=== PATIENT | male | born 1995 | race African-American/Black ===

== ENCOUNTER 2019-07-31 15:17 | Emergency (ER) | payer MEDICAID ==
[~2019-07-31] VITALS: Ht 157.5 cm; Wt 59.0 kg
[2019-07-31 15:46] VITALS: BP 107/74
[2019-07-31] MEDS ORDERED: ACETAMINOPHEN 325MG TABLET PO ONE (17:00)
== END 2019-07-31 17:44 | disposition home or self-care (01) ==
LOC: ER 15:17
DX: K11.20 Sialoadenitis, unspecified (principal); J45.909 Unspecified asthma, uncomplicated; Z90.49 Acquired absence of other specified parts of digestive tract; Z88.6 Allergy status to analgesic agent
CPT/HCPCS: 99281; 99283

== ENCOUNTER 2021-01-07 11:11 | Emergency (ER) | payer SELFPAY ==
[~2021-01-07] VITALS: Ht 157.5 cm; Wt 61.0 kg
[2021-01-07] MEDS ORDERED: AMOX-424 MT (12:44)
[2021-01-07] MEDS ORDERED: NAPR-1176 MT (12:44)
[2021-01-07] MEDS ORDERED: ACET-2708 MT (12:44)
[2021-01-07] MEDS ORDERED: AMOXICILLIN/POTASSIUM CLAVULANATE 875/125MG TAB PO ONE (12:45)
[2021-01-07] MEDS ORDERED: ACETAMINOPHEN 325MG TABLET PO ONE (12:45)
[2021-01-07] MEDS ORDERED: IBUPROFEN 600MG TABLET PO ONE (12:45)
[2021-01-07 13:29] VITALS: BP 117/72
== END 2021-01-07 13:40 | disposition home or self-care (01) ==
LOC: ER 11:11
DX: K04.7 Periapical abscess without sinus (principal); J45.909 Unspecified asthma, uncomplicated; Z90.49 Acquired absence of other specified parts of digestive tract; Z88.6 Allergy status to analgesic agent
CPT/HCPCS: 99284

== ENCOUNTER 2021-01-31 14:29 | Emergency (ER) | payer MEDICAID ==
[~2021-01-31] VITALS: Ht 160 cm; Wt 59.0 kg
[~2021-01-31 14:29] MED LIST: ACET-2708 MT; AMOX-424 MT; NAPR-1176 MT
[2021-01-31 14:41] VITALS: BP 100/48
[2021-01-31] MEDS ORDERED: AMOXICILLIN 500 MG CAPSULE PO ONE (16:45)
[2021-01-31] MEDS ORDERED: ACET-2708 MT (16:52)
[2021-01-31] MEDS ORDERED: AMOX-494 MT (16:52)
== END 2021-01-31 17:12 | disposition home or self-care (01) ==
LOC: ER 14:34
DX: K02.9 Dental caries, unspecified (principal); J45.909 Unspecified asthma, uncomplicated; Z79.899 Other long term (current) drug therapy
CPT/HCPCS: 99283

== ENCOUNTER 2025-03-05 19:17 | Emergency (ER) | payer MEDICAID ==
[~2025-03-05] VITALS: Ht 154.9 cm; Wt 59.0 kg
[~2025-03-05 19:17] MED LIST changes: +AMOX-494 MT
[2025-03-05] MEDS ORDERED: MIDAZOLAM HCL 5 MG/ML VIAL IM ONE (19:30)
[2025-03-05] MEDS: OLANZAPINE 10 MG/VIAL IM ONE (19:57)
[2025-03-05] MEDS: MIDAZOLAM HCL 2 MG/2 ML VIAL ONE (19:58)
[2025-03-05 19:59] VITALS: O2SAT 99
[2025-03-05] MEDS: MIDAZOLAM HCL 2 MG/2 ML VIAL IM NR (19:59)
[2025-03-05 21:35] LABS: BASOPHILS % 0.2 % (0.0-2.0); EOSINOPHILS % 0.2 % (0.0-5.0); HEMATOCRIT. 34.9 % (42.0-52.0); HEMOGLOBIN. 11.7 g/dL (14.0-18.0); LYMPHOCYTES % 17.2 % (20.0-50.0); MEAN PLATELET VOLUME 7.0 fl (7.4-10.4); MONOCYTES % 7.5 % (2.0-8.0); NEUTROPHILS % 74.9 % (40.0-76.0); PLATELET 270 x1000/uL (130-400); RED BLOOD CELL COUNT 3.65 mill/uL (4.7-6.1); RED CELL DISTRIBUTION WIDTH 13.7 % (11.6-14.6)
[2025-03-05 21:48] LABS: CREATININE 1.3 mg/dL (0.6-1.3); UREA NITROGEN BLOOD 10 mg/dL (9-23)
[2025-03-05 21:49] LABS: ASPARTATE AMINOTRANSFERASE 24 IU/L (<34)
[2025-03-05 21:50] LABS: BILIRUBIN DIRECT 0.2 mg/dL (<=3.0); BILIRUBIN TOTAL 0.5 mg/dL (0.1-1.0); PROTEIN TOTAL 6.5 g/dL (6.0-8.3)
[2025-03-06 00:24] LABS: *AMPHETAMINES SCREEN URINE NEGATIVE (NEGATIVE); *BARBITURATES SCREEN URINE NEGATIVE (NEGATIVE); *BENZODIAZEPINES SCREEN URINE PRESUMPTIVE POSITIVE (NEGATIVE); *COCAINE SCREEN URINE NEGATIVE (NEGATIVE); CANNABINOID URINE SCREEN PRESUMPTIVE POSITIVE (NEGATIVE); ECSTASY MDMA SCREEN URINE NEGATIVE (NEGATIVE); METHADONE URINE SCREEN NEGATIVE (NEGATIVE); OPIATES URINE SCREEN NEGATIVE (NEGATIVE); PHENCYCLIDINE URINE SCREEN NEGATIVE (NEGATIVE)
[2025-03-06] MEDS: POTASSIUM CHLORIDE 20MEQ TABLET SR PO NR (02:45)
[2025-03-06 12:03] VITALS: BP 110/62; PULSE 92; RESP 16; TEMP 37.1; O2SAT 99
== END 2025-03-06 12:08 | disposition home or self-care (01) ==
LOC: ER 19:17
DX: R45.851 Suicidal ideations (principal); J45.909 Unspecified asthma, uncomplicated; F20.9 Schizophrenia, unspecified; Z59.00 Homelessness unspecified; Z90.49 Acquired absence of other specified parts of digestive tract; Z79.1 Long term (current) use of non-steroidal anti-inflammatories (NSAID); Z20.822 Contact with and (suspected) exposure to COVID-19; Z79.899 Other long term (current) drug therapy; Z88.6 Allergy status to analgesic agent
CPT/HCPCS: 80076; 80048; 80307; 83690; 85025; 36415; 93005; 96372; 99285; 87426; G0480; J3490; J2250; Z7610; 80305; 80320; 80329